=== PATIENT | male | born 1995 | race Caucasian/White ===

== ENCOUNTER 2017-03-15 23:58 | Emergency (ER) | payer OTHER ==
--- NOTE | ~2017-03-15 | ER ---
PATIENT'S NAME: RADHA PINEDA [facility] AGE: 21 Y [address] ROOM: [place] [address] LOCATION: [facility] ADMIT DATE: 03/15/2017 ER/Outpatient Report DISCHARGE DATE: 03/16/2017 FAMILY PHYSICIAN: Sahil Fierro MD ATTENDING PHYSICIAN: Mahesh Johnson Radha Pineda was evaluated on March 16 for diarrhea. Stool culture is positive for Campylobacter. Chart was reviewed. The patient was treated with IV fluids, Zofran, Cipro IV in the ER, and then Cipro 500 mg b.i.d. for 1 week on discharge with followup recommended in 5 to 7 days. I did contact the patient. He is no longer having fever or chills. He is feeling better. Symptoms are improving, and he will follow up as directed in 5 to 7 days, and complete the Cipro as directed. The patient voiced understanding. MD ALFRED DAHL/mul /[id number] d: 03/18/176 t: 03/20/172042, OUTPATIENT REPORT
--- NOTE | ~2017-03-15 | ER ---
PATIENT'S NAME: RADHA PINEDA [facility] AGE: 21 Y [address] ROOM: [place] [address] LOCATION: [facility] ADMIT DATE: 03/15/2017 ER/Outpatient Report DISCHARGE DATE: 03/16/2017 FAMILY PHYSICIAN: Sahil Fierro MD ATTENDING PHYSICIAN: Mahesh Johnson Admission date and time documented in medical record. I saw the patient at 0015 hours. CHIEF COMPLAINT: Nausea, vomiting, bloody diarrhea, intermittent fever, abdominal pain. HISTORY OF PRESENT ILLNESS: The patient is a 21-year-old male who over the past 4 to 5 days he has had some intermittent generalized abdominal pain. He has had some intermittent nausea and vomiting, last being about 3 to 4 days ago. He has had intermittent diarrhea, last diarrhea stool prior to admission was bloodied. Intermittent fever. He had a temperature high of 100.7 4 or 5 days ago. Afebrile on admission into the emergency department. He was able to get a stool, so we sent that down for analysis. No nausea or vomiting here in the emergency department. No chest pain or shortness of breath. No history of falling or trauma. No headache, eyes, ears, nose, throat, neck, or spine pain. No lightheadedness, dizziness, syncope, or near syncope. No urinary symptoms. No joint or muscle swelling, redness, or pain. No skin eruptions or rash. No history of neuro changes, psych issues, or endocrine problems. HOME MEDICATIONS: None. ALLERGIES: SEE ATTACHED NURSE'S SHEET. SOCIAL HISTORY: Nonsmoker. Does chew tobacco. Does drink alcohol. SIGNIFICANT PAST MEDICAL HISTORY: Tobacco use, otherwise negative. OPERATIONS: None. REVIEW OF SYSTEMS: All systems are reviewed by me are negative with the exception of those discussed in the history of present illness. PATIENT'S NAME: RADHA PINEDA [facility] AGE: 21 Y [address] ROOM: [place] [address] LOCATION: [facility] ADMIT DATE: 03/15/2017 ER/Outpatient Report DISCHARGE DATE: 03/16/2017 FAMILY PHYSICIAN: Sahil Fierro MD ATTENDING PHYSICIAN: Mahesh Johnson PHYSICAL EXAMINATION: VITAL SIGNS: Temperature 98 forehead scan, pulse 74, respirations 18, blood pressure 134/72, and O2 saturation on room air is 96%. HEENT: Head: Normocephalic. Eyes: Clear. Ears: Clear TMs bilaterally. Nose: Clear. Throat: Clear. Mucous membranes moist. Teeth and jaw intact. NECK: No nuchal rigidity. No thyromegaly or cervical adenopathy. No tenderness. SPINE: Nontender. No deformity. LUNGS: Clear. Good air flow. No rales, rhonchi, or wheezes. HEART: Regular. Pulses are palpable. No chest wall or ribcage pain to palpation. ABDOMEN: Soft, nondistended. He has some generalized tenderness. No true guarding or rigidity. No rebound tenderness. No palpable masses. No organomegaly. No CVA tenderness. Stool was positive for blood and white cells. Culture pending. EXTREMITIES: Intact. NEUROVASCULAR: Intact. SKIN: Clear. No skin eruptions or rash. LABORATORY DATA: See laboratory reports on the chart. CT scan of the abdomen and pelvis with IV contrast showed diffuse colonic wall thickening consistent with colitis. There was no free air or free fluid. There was no bowel obstruction. The appendix was normal. CT scan was read by Radiology, see dictated transcribed report. IMPRESSION: Abdominal pain with intermittent nausea, vomiting, and fever. Had bloody diarrhea over the past [address] scan shows diffuse colonic wall thickening consistent with colitis. 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 PLAN: I did start the patient on IV normal saline fluids, gave him 1 L at 150 mL an hour. Gave him Zofran for nausea and vomiting. Gave him Cipro 400 mg IV in the emergency department. Discharged home. Observation. Activity as tolerated. Clear liquid diet for 24 hours and then advance diet as tolerated. Cipro 500 mg b.i.d. for a week. [place] as needed for pain. Follow up with personal physician in 5 to 7 days or sooner if needed. Discussion ensued with the patient and his concerning my findings and recommendations, they understand. PATIENT'S NAME: RADHA PINEDA [facility] AGE: 21 Y [address] ROOM: [place] [address] LOCATION: [facility] ADMIT DATE: 03/15/2017 ER/Outpatient Report DISCHARGE DATE: 03/16/2017 FAMILY PHYSICIAN: Sahil Fierro MD ATTENDING PHYSICIAN: Mahesh Johnson MD SDS/modl /[id number] d: 03/16/179 t: 03/17/17 1810, OUTPATIENT REPORT
[2017-03-16 00:54] LABS: BASOPHIL % 0.2 %; EOSINOPHIL # 0.1 K/uL (0.0-0.5); EOSINOPHIL % 0.8 %; HEMATOCRIT 38.8 % (37.0-53.0); HEMOGLOBIN 13.5 g/dL (12.0-17.0); IMMATURE GRANULOCYTE # 0.1 K/uL (0.0-0.3); IMMATURE GRANULOCYTE % 0.5 %; LYMPHOCYTE # 1.6 K/uL (0.8-4.0); LYMPHOCYTE % 17.7 %; MCH 29.5 pg (27.0-34.0); MCHC 34.8 gm/dL (32.0-36.5); MCV 84.9 fl (83.0-98.0); MONOCYTE # 1.2 K/uL (0.0-1.0); MONOCYTE % 12.5 %; MPV 9.3 fl (9.4-12.4); NEUTROPHIL # (ANC) 6.3 K/uL (1.4-9.0); NEUTROPHIL % 68.3 %; NRBC % 0 /100WBC (0-0.00); PLATELET COUNT 267 K/uL (150-450); RBC 4.57 M/uL (4.00-6.00); WBC 9.3 K/uL (4.0-11.0)
[2017-03-16 01:14] LABS: ALBUMIN 3.7 gm/dL (3.5-5.0); ALK PHOS 73 IU/L (33-138); ALT 29 IU/L (12-78); ANION GAP 11.6 (10.0-19.0); AST 28 IU/L (10-40); BLOOD UREA NITROGEN 12 mg/dL (6-24); CALCIUM 8.8 mg/dL (8.5-10.5); CHLORIDE 104 mMol/L (96-110); CO2 24 mMol/L (22-32); CREATININE 0.9 mg/dL (0.6-1.3); POTASSIUM 3.6 mMol/L (3.7-5.1); SODIUM 136 mMol/L (135-145); TOTAL BILIRUBIN 0.3 mg/dL (0.0-1.5)
== END 2017-03-16 03:02 | disposition disaster alternative care site (69) ==
LOC: GMED 23:58
PROVIDERS: Emergency Medicine
DX: A04.5 Campylobacter enteritis (principal); R50.9 Fever, unspecified; F17.220 Nicotine dependence, chewing tobacco, uncomplicated; Z88.1 Allergy status to other antibiotic agents
CPT/HCPCS: G0480; J0744; J2405; J7030; Q9967